=== PATIENT | female | born 1975 | race Caucasian/White ===

== ENCOUNTER 2022-09-09 09:41 | Day surgery (SDC) | payer OTHER, SELFPAY ==
--- NOTE | 2022-09-09 09:44 | MR_ITS ---
The [address] [address] Patient Name: KELSEA GARCIA MRN: [facility]:[id number] date: 1975 Sex: F Assigned Patient Location: MRI Current Patient Location: MRI Accession/Order Number: [id number] Exam Date: 09/09/2022 11:04 Report Date: 09/09/2022 12:40 At the request of: AMANDA KELLEY Procedure: MR arthogram hip EXAMINATION: MR arthrogram hip HISTORY: Right Hip Pain COMPARISON: No relevant comparison available. TECHNIQUE: A comprehensive examination was performed utilizing a variety of imaging planes and imaging parameters to optimize visualization of suspected pathology. Images were obtained without and/or with IV contrast as indicated by type of examination. FINDINGS: FEMORAL HEAD: Normal. No AVN, fracture, or significant arthropathy. ACETABULUM: Normal. No fracture or significant arthropathy. OTHER BONES: Normal appearance of the visualized portion of the pelvis. LABRUM: Normal appearance for a patient in this age group, with no visible tear. EFFUSIONS: None. No synovitis or loose bodies. BURSAE: Normal. No evidence of iliopsoas or trochanteric bursitis. TENDONS: Normal. Normal gluteus tendons, iliopsoas tendon, and hamstring origin. MUSCLES: Normal. No tear or strain. No inappropriate atrophy. OTHER: Negative. MR/MR arthogram hip IMPRESSION: 1. No labral tear, cartilage thinning, bone lesion, or suspicious findings to account for patient's symptoms. Electronically authenticated by: LAQUITA CEDEÑO Date: 09/09/2022 12:40
[2022-09-09 09:47] LABS: Prothrombin Time 14.6 sec (9.0-11.6)
[2022-09-09 09:48] LABS: Alanine Aminotransferase 38 U/L (14-59); Albumin Level 3.6 g/dL (3.4-5.0); Alkaline Phosphatase 81 U/L (46-116); Anion Gap 15.3; Aspartate Amino Transferase 25 U/L (15-37); BUN Creatinine Ratio 8.3; Bilirubin Total 0.4 mg/dL (0.2-1.0); Calcium 9.1 mg/dL (8.5-10.1); Carbon Dioxide 26.5 mmol/L (21.0-32.0); Chloride 105 mmol/L (98-107); Estimated GFR (African America >60 (>=60); Estimated GFR (Non-African Ame >60 (>=60); Globulin 3.6 g/dL; Glucose 106 mg/dL (74-106); Potassium 3.8 mmol/L (3.5-5.1); Sodium 143 mmol/L (136-145); Total Protein 7.2 g/dL (6.4-8.2)
[2022-09-09] MEDS: LIDOCAINE HCL 15 ML, SODIUM BICARBONATE 2 MEQ INJ (10:45)
[2022-09-09] MEDS: TRIAMCINOLONE ACETONIDE 40 MG/ML VIAL INJ (10:45)
--- NOTE | 2022-09-09 11:05 | FL_ITS ---
[address] [address] Patient Name: KELSEA GARCIA MRN: [facility]:[id number] date: 1975 Sex: F Assigned Patient Location: MRI Current Patient Location: MRI Accession/Order Number: [id number] Exam Date: 09/09/2022 10:15 Report Date: 09/09/2022 11:31 At the request of: AMANDA KELLEY Procedure: FL arthrogram hip RT EXAMINATION: FL arthrogram hip RT, FL guided needle placement HISTORY: Right Hip Pain COMPARISON: No relevant comparison available. TECHNIQUE: An arthrogram was performed under fluoroscopic guidance using non-ionic contrast material in the usual sterile manner after obtaining informed consent. Standard level fluoroscopic mode of operation utilized. FINDINGS: JOINT: Right hip NEEDLE: 25 gauge, 3.5 spinal needle. MEDICATION: 2 mL buffered 1% lidocaine for subcutaneous anesthesia. Approximately 8 mL injected into joint space consisting of a mixture of 5 mL Omnipaque-300, 5 mL 1% Xylocaine and 0.2 mL Dotarem, and 40 mg Kenalog. TECHNIQUE: Anterior approach under fluoroscopic guidance. CLINICAL: Decreased pain following the injection (7/10 preinjection; 4/10 post injection). COMPLICATIONS: None. OTHER: Negative. FL/FL arthrogram hip RT IMPRESSION: 1. Technically successful arthrogram without complication. 2. Please see separate MRI arthrogram report. Electronically authenticated by: LAQUITA ECDEÑO Date: 09/09/2022 11:31
--- NOTE | 2022-09-09 11:37 | PC.NURSE ---
Time out completed at 09/09/22 at 1042 with Chino Corbin, and Dr Gayle present in room with agreeance
== END 2022-09-09 11:05 | disposition home or self-care (01) ==
PROVIDERS: Radiology Diagnostic Radiology; PCP Internal Medicine; Visit Provider Personal Emergency Response Attendant
DX: M25.551 Pain in right hip (principal)
CPT/HCPCS: 27093; 36415; 73525; 73722; 77002; 80053; 85610; A9575; Q9967